=== PATIENT | female | born 1950 | race Caucasian/White ===

== ENCOUNTER 2021-04-10 10:11 | Outpatient (CLI) | payer MEDICARE | END 2021-04-10 23:59 | disposition home or self-care (01) | LOC: CFH 10:11 | PROVIDERS: ATTEND Nurse Practitioner Family | DX: Z12.31 Encounter for screening mammogram for malignant neoplasm of breast (principal); Z13.820 Encounter for screening for osteoporosis; M85.88 Other specified disorders of bone density and structure, other site | CPT/HCPCS: 77063; 77067; 77080 ==